=== PATIENT | female | born 1930 | race Caucasian/White ===

== ENCOUNTER 2016-09-28 15:46 | Emergency (ER) | payer OTHER ==
[~2016-09-28] VITALS: Ht 182.9 cm; Wt 86.4 kg
[2016-09-28 15:56] LABS: GLUCOSE,POINT OF CARE 220 MG/DL (70-110)
[2016-09-28] MEDS ORDERED: METF500T4 PO (15:59)
[2016-09-28] MEDS ORDERED: LOSA25TA21 PO (15:59)
[2016-09-28] MEDS ORDERED: CARB-100 PO (15:59)
[2016-09-28] MEDS ORDERED: AMLO2.5T PO (15:59)
[2016-09-28] MEDS ORDERED: ASPI-556 PO (18:15)
[2016-09-28] MEDS ORDERED: PRAV40 PO (18:15)
[2016-09-28] MEDS ORDERED: FAMO20 PO (18:15)
[2016-09-28] MEDS ORDERED: METO25 PO (18:15)
[2016-09-28] MEDS ORDERED: LOSA50TA37 PO (18:15)
[2016-09-28 18:16] LABS: GLUCOSE,POINT OF CARE 154 MG/DL (70-110)
[2016-09-28] MEDS ORDERED: METOPROLOL TARTRATE 50 MG TABLET PO ONE (18:30)
[2016-09-28] MEDS ORDERED: AmLODIPine BESYLATE 5 MG TABLET PO ONE (18:30)
[2016-09-28] MEDS ORDERED: METO50 PO (18:34)
[2016-09-28] MEDS ORDERED: MORPHINE SULFATE 4 MG/ML SYRINGE IM ONE (19:30)
[2016-09-28] MEDS ORDERED: ONDANSETRON HCL 4 MG/2 ML VIAL IM ONE (19:30)
[2016-09-28] MEDS ORDERED: DEXAMETHASONE SOD PHOS 4 MG/ML 5 ML VIAL IM ONE ×2 (20:00)
[2016-09-28 20:23] VITALS: BP 138/71
== END 2016-09-28 20:31 | disposition home or self-care (01) ==
LOC: EMS 15:48
DX: M13.0 Polyarthritis, unspecified (principal); I10 Essential (primary) hypertension; E11.9 Type 2 diabetes mellitus without complications; Z88.5 Allergy status to narcotic agent; Z88.6 Allergy status to analgesic agent; Z79.82 Long term (current) use of aspirin
CPT/HCPCS: 82962; 93005; 96372; 99284; J1100; J2270; J2405